=== PATIENT | male | born 1935 | race Caucasian/White ===

== ENCOUNTER → 2019-03-03 | Day surgery (SDC) | payer MEDICARE, OTHER ==
[2019-03-02 14:12] LABS: BASOPHILS # (AUTO) 0.1 (0.0-0.1); BASOPHILS % 1.1 % (0.0-1.0); EOSINOPHILS # (AUTO) 0.4 (0.0-0.4); EOSINOPHILS % 7.6 % (0.0-6.0); HEMATOCRIT 36.5 % (38.2-49.6); HEMOGLOBIN 11.8 g/dL (14.0-18.0); LYMPHOCYTES # (AUTO) 1.5 (1.0-3.2); LYMPHOCYTES % 28.2 % (18.0-39.1); MEAN CORPUSCULAR HEMOGLOBIN 30.5 pg (28-32); MEAN CORPUSCULAR HGB CONC 32.3 g/dL (31-35); MEAN CORPUSCULAR VOLUME 94.3 fL (81-99); MONOCYTES # (AUTO) 0.6 (0.2-0.8); MONOCYTES % 11.8 % (4.4-11.3); NEUTROPHILS # (AUTO) 2.7 (2.1-6.9); NEUTROPHILS % 50.9 % (38.7-80.0); PLATELET COUNT 232 x10e3/uL (140-360); RED BLOOD COUNT 3.87 x10e6/uL (4.3-5.7); RED CELL DISTRIBUTION WIDTH 12.9 % (11.7-14.4)
[~2019-03-03] MED LIST: AMLODIPINE BES2.5 MG PO; ASPIR 8181 MG PO; ASPIRIN325 MG PO; CALCIUM 600 MG1 EAC4; CHONDROITIN; COUMADIN3 MG PO; EPHEDRINE SULFATE INJ 50 MG/10 ML SYR ONE; FOLIC ACID1 MG PO; FUROSEMIDE20 MG PO; GLUCAGON FOR INJ 1 MG VIAL ONE; GLUCOSAMINE; ISOSORBIDE MONO30 MG PO; KLOR-CON M2020 MEQ PO; LORATADINE; MONTELUKAST SOD10 MG PO; PANTOPRAZOLE SO40 MG PO; PLAVIX75 MG PO; POTASSIUM GLUC500 GM PO; PRAMIPEXOLE DIHY1 MG PO; PROPOFOL IV EMULSION 10 MG/ML 50 ML VIAL ONE; SIMVASTATIN40 MG PO; Z PACERONE PO; Z VITAMIN E PO; Z.0.CYCLOBENZAPRINE1 PO; Z.0.LEVOTHYROXINE50 PO; Z.0.MAGNESIUM400 MG PO; Z.0.METOPROLOL TART2 PO; Z.0.VITAMIN C500 M1 PO; Z.0.XARELTO20 MG; [UNRECOGNIZED DRUG - OTHER] PO
--- OUTSIDE RECORDS SUMMARY | 2019-03-03 06:04 | XMS REPORT | Continuity of Care Document ---
Author Author [facility] Interface Address Unknown Phone Unavailable Problems Problem Status Onset Date Classification Date Reported Comments Source M54.17 Active 12/07/2016 [facility] 427.81 Active 05/04/2015 [facility] UNK Active 05/04/2015 [facility] FALL, NOSE BLEED Active 01/19/2014 [facility] Bradycardia Active Problem 12/20/2016 [facility] CA - Cancer of prostate Resolved Problem 12/20/2016 [facility] CTS - Carpal tunnel syndrome Active Problem 12/20/2016 [facility] Gallstones Resolved Problem 12/20/2016 [facility] Hyperlipidemia Resolved Problem 12/20/2016 [facility] Hypertension Active Problem 12/20/2016 [facility] Hypothyroid Active Problem 12/20/2016 [facility] Myocardial infarct Resolved Problem 12/20/2016 [facility] Sleep apnea Active Problem 12/20/2016 [facility] Stented coronary artery Active Problem 12/20/2016 [facility] 786.50 Active [facility] CHEST PAIN NOS Active [facility] SINOATRIAL NODE DYSFUNCT Active [facility] RADICULOPATHY, LUMBOSACRAL REGION Active [facility] Medications Medication Details Route Status Patient Instructions Ordering Provider Order Date Source Omnipaque 300 10 mL, Route: MISC, Drug Form: SOLN, ONCE, Start date: 12/17/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 WASTE: F/P - Black; E - [facility] Trash [facility] Inactive 12/17/2016 [facility] Ciprofloxacin 500 MG Oral Tablet [Cipro] 500 mg=1 tab, PO, Q12H, # 1 tab, 0 Refill(s) Active 05/10/2015 [facility] pneumococcal capsular polysaccharide type 1 vaccine / pneumococcal capsular polysaccharide type 10A vaccine / pneumococcal capsular polysaccharide type 11A vaccine / pneumococcal capsular polysaccharide type 12F vaccine / pneumococcal capsular polysacchar 0.5 mL, Route: IM, Drug Form: INJ, Daily, Start date: 05/09/15 9:00:00, Duration: 1 doses or times, Stop date: 05/09/15 9:00:00Notes: (Same as: Pneumovax 23) Refrigerate Inactive 05/09/2015 [facility] potassium chloride 20 mEq, 1 tab, Route: PO, Drug form: ERTAB, Daily, Dosing Weight 87.727, kg, Start date: 05/09/15 9:00:00, Duration: 30 day, Stop date: 06/07/15 9:00:00Notes: (Same as: K-Dur 20) "Do Not Crush" With food and full glass of water Inactive 05/09/2015 [facility] Furosemide 20 MG Oral Tablet 20 mg, 1 tab, Route: PO, Drug form: TAB, Daily, Dosing Weight 87.727, kg, Start date: 05/09/15 9:00:00, Duration: 30 day, Stop date: 06/07/15 9:00:00Notes: (Same as: Lasix) May cause GI upset. Give with food or milk. Inactive 05/09/2015 [facility] Amlodipine 2.5 mg, 1 tab, Route: PO, Drug form: TAB, Daily, Dosing Weight 87.727, kg, Start date: 05/09/15 9:00:00, Duration: 30 day, Stop date: 06/07/15 9:00:00Notes: (Same as: Norvasc) Inactive 05/09/2015 [facility] Thyroxine 50 microgram, 1 tab, Route: PO, Drug form: TAB, Q630AM, Dosing Weight 87.727, kg, Start date: 05/09/15 6:30:00, Duration: 30 day, Stop date: 06/07/15 6:30:00Notes: Take 1 hour before or 2 hours after meal; Enteral feeds may interefere with the absorption of this medication.(Same as:Levothroid, Synthroid) Inactive 05/09/2015 [facility] metoprolol tartrate 50 mg, 1 tab, Route: PO, Drug form: TAB, Q12H, Dosing Weight 88.182, kg, Priority: NOW, Start date: 05/08/15 23:57:00, Duration: 30 day, Stop date: 06/07/15 21:00:00Notes: (Same as: Lopressor) No Longer Active 05/09/2015 [facility] Ciprofloxacin 500 mg, 1 tab, Route: PO, Drug form: TAB, Q12H, Dosing Weight 87.727, kg, Start date: 05/08/15 21:00:00, Duration: 30 day, Stop date: 06/07/15 9:00:00Notes: May interfere w/enteral feedings - Take 1 hr before or 2 hrs after antacids, dairy pdt & minerals. On empty stomach. No Longer Active 05/09/2015 [facility] Simvastatin 40 mg, 1 tab, Route: PO, Drug form: TAB, Bedtime, Dosing Weight 87.727, kg, Start date: 05/08/15 21:00:00, Duration: 30 day, Stop date: 06/06/15 21:00:00Notes: (Same as: Zocor) No Longer Active 05/09/2015 [facility] nitroglycerin 0.4 mg sublingual tablet 0.4 mg, 1 tab, Route: SL, Drug form: TAB, Q5Min, PRN Chest Pain, Start date: 05/08/15 14:53:00, Duration: 30 day, Stop date: 06/07/15 14:52:00Notes: (Same as:Nitroquick, Nitrostat) "Do Not Crush" Sublingual tablet No Longer Active 05/08/2015 [facility] atropine 0.5 mg, 5 mL, Route: IVP, Drug form: INJ, PRN, PRN Bradycardia, Start date: 05/08/15 14:53:00, Duration: 30 day, Stop date: 06/07/15 14:52:00 No Longer Active 05/08/2015 [facility] Enoxaparin 40 mg, 0.4 mL, Route: SUB-Q, Drug form: INJ, [id number], Dosing Weight 87.727, kg, Start date: 05/08/15 13:00:00, Duration: 30 day, Stop date: 06/06/15 13:00:00Notes: (Same as: Lovenox) No Longer Active 05/08/2015 [facility] Vancomycin 1 gm, Route: IVPB, ONCE, Dosing Weight 87.727, kg, Time Critical Medication, Start date: 05/08/15 11:56:00, Stop date: 05/08/15 11:56:00 Inactive 05/08/2015 [facility] Acetaminophen 325 mg, 1 tab, Route: PO, Drug form: TAB, Q4H, Dosing Weight 87.727, kg, PRN Pain Score 4-6, Start date: 05/08/15 11:56:00, Duration: 30 day, Stop date: 06/07/15 11:55:00Notes: Do not exceed 4 gm/day. (Same as: Tylenol) No Longer Active 05/08/2015 [facility] Glucosamine Chondroitin MSM Complex oral tablet 1 tab, PO, Daily, 0 Refill(s) Active 05/05/2015 [facility] potassium gluconate 595 mg oral tablet 595 mg=1 tab, PO, 5X Day, # 100 tab, 0 Refill(s) Active 05/05/2015 [facility] Vitamin B12 2500 mcg sublingual tablet 2,500 microgram=1 tab, SL, Daily, # 60 tab, 0 Refill(s) Active 05/05/2015 [facility] vitamin E 400 intl units oral capsule 400 IntlUnit=1 cap, PO, BID, # 7 cap, 0 Refill(s) Active 05/05/2015 [facility] montelukast 10 mg oral tablet 10 mg=1 tab, PO, Bedtime, # 90 tab, 0 Refill(s) Active 05/05/2015 [facility] Vitamin C 500 mg oral capsule 500 mg=1 cap, PO, Daily, # 90 cap, 0 Refill(s) Active 05/05/2015 [facility] magnesium oxide 400 mg oral tablet 400 mg=1 tab, PO, TID, # 7 tab, 0 Refill(s) Active 05/05/2015 [facility] levothyroxine 50 mcg (0.05 mg) oral tablet 50 microgram=1 tab, PO, Daily, # 90 tab, 0 Refill(s) Active 05/05/2015 [facility] pramipexole 0.125 mg oral tablet 0.25 mg=2 tab, PO, Bedtime, # 30 tab, 1 Refill(s) Active 05/05/2015 [facility] Aspirin 325 MG Oral Tablet 325 mg=1 tab, PO, Daily, # 90 tab, 0 Refill(s) Active 05/05/2015 [facility] AMIODarone 200 mg oral tablet 200 mg=1 tab, PO, Daily, # 60 tab, 0 Refill(s) No Longer Active 05/05/2015 [facility] Furosemide 20 MG Oral Tablet 20 mg=1 tab, PO, Daily, # 90 tab, 0 Refill(s) Active 05/05/2015 [facility] Potassium Chloride 20 MEQ Extended Release Tablet [Klor-Con] 20 mEq=1 tab, PO, Daily, # 180 tab, 0 Refill(s) Active 05/05/2015 [facility] metoprolol 50 mg oral tablet, extended release 50 mg=1 tab, PO, BID, # 30 tab, 1 Refill(s) Active 05/05/2015 [facility] simvastatin 40 mg oral tablet 40 mg=1 tab, PO, Bedtime, # 30 tab, 5 Refill(s) Active 05/05/2015 [facility] amLODIPine 2.5 mg oral tablet 2.5 mg=1 tab, PO, Daily, # 30 tab, 0 Refill(s) Active 05/05/2015 [facility] Allergies, Adverse Reactions, Alerts Substance Category Reaction Severity Reaction type Status Date Reported Comments Source Immunizations Immunization Date Given Site Status Last Updated Comments Source pneumococcal 23-valent vaccine 05/09/2015 Right deltoid completed [facility] diphtheria/pertussis, acel/tetanus adult 01/19/2014 Right deltoid completed [facility] Results Order Name Results Value Reference Range Date Interpretation Comments Source Spine lumbar myelogram CT Spine lumbar myelogram CT CT LUMBAR MYELOGRAM Clinical Indication: M54.17 Radiculopathy, lumbosacral region; low back pain and bilateral leg weakness, worse within the left side. Comparison: None TECHNIQUE: Sequential trans-axial images were obtained with a multi-detector helical CT after the myelogram. Coronal and sagittal reconstructions were obtained. CT Radiation Dose DLP 460 mGy-cm FINDINGS: Optimal subarachnoid contrast opacification is present. ALIGNMENT AND GENERAL ASSESSMENT: There are 5 nonrib-bearing lumbar vertebral segments. There is normal alignment of the lumbar spine without fractures. There are no pars interarticularis defects noted. The anterior and posterior paraspinal soft tissues are unremarkable. The spinous processes are unremarkable. The conus medullaris is unremarkable, ending at the L1 level. DISK SPACES: T12-L1: Posterior endplate ridging and diffuse disc protrusion and moderate facet arthrosis resulting in effacement of the anterior thecal sac and mild flattening of the conus. No significant foraminal stenosis detected. L1-L2: Prominent diffuse disc protrusion possibly extrusion and moderate facet arthrosis resulting in mild spinal stenosis. Mild bilateral foraminal stenosis is present. L2-L3: Posterior endplate ridging and disc osteophyte complex and marked facet arthrosis resulting in moderate spinal stenosis with some crowding the cauda equina nerve roots. Severe bilateral foraminal stenosis probably impinging on the exiting L2 nerve roots. Please correlate with neurologic symptoms. L3-L4: Postoperative laminectomy. Prominent diffuse disc protrusion and marked facet arthrosis resulting in moderately severe spinal stenosis with crowding the cauda equina nerve roots to mild constriction. Moderate bilateral foraminal stenosis is present. Please correlate with neurologic symptoms. L4-L5: Postoperative laminectomy. Prominent diffuse disc protrusion and marked facet arthrosis resulting in severe spinal stenosis and cauda equina constriction. Moderately severe bilateral foraminal stenosis is present. Please correlate with neurologic symptoms. L5-S1: Prominent diffuse disc protrusion and marked facet arthrosis resulting in moderately severe spinal stenosis. Severe bilateral foraminal stenosis is present probably impinging on the exiting L5 nerve roots. Please correlate with neurologic symptoms. IMPRESSION: 1. Postoperative laminectomies are present at L3-L4 and L4-L5. Multilevel degenerative disc disease and marked facet arthrosis as detailed above. 2. No definite acute compression fracture detected. 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 stated hx. of low back pain and b/l leg weakness...hx. back surgery; fluoro time: 07 sec. dose: 6 mGy Omnipaque 180 Comparison: None EXAM: FLUOROSCOPY-GUIDED LUMBAR PUNCTURE FOR CT MYELOGRAM PROCEDURE: An interlaminar lumbar puncture was carried out under fluoroscopic guidance with a 22 gauge spinal Quincke needle at the level of L2-L3 under the usual sterile conditions and local anesthesia. About 10.0 mL of Iohexol-180 was instilled into the lumbar thecal sac. The patient tolerated the procedure well. FLUOROSCOPIC TIME: About 7 seconds MYELOGRAMS. Digital images of the lumbar spine show severe lumbar spondylosis and marked facet arthrosis and postoperative laminectomies at L3-L4 and L4-L5. IMPRESSION: Successful lumbar puncture for CT myelogram of the lumbar spine. SL: [id number] 12/17/2016 - - Read by: Shad Apple MD Dictated Date/time: 12/17/16 09:50 Electronically Signed by: Shad Apple MD 12/17/16 10:00 FINAL REPORT [facility] Chest 2 views DX Chest 2 views DX PROCEDURE: Chest 2 views REASON FOR EXAM: Status post PPM/ICD Implantation CLINICAL INFORMATION Arrhythmias COMPARISON: 04/2015. 01/2014. 10/2013. Implanted pacemaker. Enlarged cardiac silhouette. Bibasilar atelectasis. No pneumothorax. Right humeral replacement. Left glenohumeral joint osteoarthritic change. Thoracic spurring. SL: 13 05/09/2015 - - Read by: Bjorn Boggs MD Dictated Date/time: 05/09/15 07:39 Electronically Signed by: Bjorn Boggs MD 05/09/15 07:40 FINAL REPORT [facility] CHEM PANEL Creatinine Lvl 1.0 mg/dL 0.5 - 1.4 05/08/2015 [facility] CHEM PANEL Sodium Lvl 139 meq/L 135 - 145 05/08/2015 [facility] CHEM PANEL eGFR 71 mL/min/1.73m2 05/08/2015 1Result Comment: The eGFR is calculated using the CKD-EPI formula. In most young, healthy individuals the eGFR will be >90 mL/min/1.73m2. The eGFR declines with age. An eGFR of 60-89 may be normal in some populations, particularly the elderly, for whom the CKD-EPI formula has not been extensively validated. Use of the eGFR is not recommended in the following populations: Individuals with unstable creatinine concentrations, including patients and those with serious co-morbid conditions. Patients with extremes in muscle mass or diet. The data above are obtained from the National Kidney Disease Education Program (NKDEP) which additionally recommends that when the eGFR is used in patients with extremes of body mass index for purposes of drug dosing, the eGFR should be multiplied by the estimated BMI. [facility] CHEM PANEL AGAP 12.3 meq/L 10.0 - 20.0 05/08/2015 [facility] CHEM PANEL Chloride Lvl 104 meq/L 95 - 109 05/08/2015 [facility] CHEM PANEL Potassium Lvl 4.3 meq/L 3.5 - 5.1 05/08/2015 [facility] CHEM PANEL CO2 27 meq/L 24 - 32 05/08/2015 [facility] CHEM PANEL Calcium Lvl 8.4 mg/dL 8.5 - 10.5 05/08/2015 [facility] CHEM PANEL Glucose Lvl 95 mg/dL 70 - 99 05/08/2015 3Interpretive Data: Adult reference range values reflect the clinical guidelines of the [place] [employer]. [facility] CHEM PANEL BUN 17 mg/dL 7 - 22 05/08/2015 [facility] HEMATOLOGY Platelet 216 K/CMM 133 - 450 05/08/2015 [facility] HEMATOLOGY PTT 33.6 s 22.9 - 35.8 05/08/2015 6Interpretive Data: Heparin Therapeutic Range: 57 - 92 Seconds [facility] Chest 1view DX Chest 1view DX NAME: KANU GARCIA : 1935 SEX: M Ordering Physician: Cedric Banuelos Chest 1view : May 08, 2015 12:39:00 PM. CLINICAL INDICATION: Arrhythmias. Comparison Examination: 01/19/2014. FINDINGS: Left transvenous pacer in place with 1-lead in expected region of the right atrium and 1-lead in the expected region of the right ventricle. Enlarged cardiac silhouette and mediastinal structures stable including aortic calcification and probable hiatal hernia. No focal infiltrate identified within the lungs, no edema and no pneumothorax. The patient is status post right shoulder replacement. Degenerative changes seen about the thoracic spine. SL: 14 05/08/2015 - - Read by: Bong Torres MD Dictated Date/time: 05/08/15 12:46 Electronically Signed by: Bong Torres MD 05/08/15 12:47 FINAL REPORT [facility] CHEM PANEL eGFR 64 mL/min/1.73m2 05/05/2015 2Result Comment: The eGFR is calculated using the CKD-EPI formula. In most young, healthy individuals the eGFR will be >90 mL/min/1.73m2. The eGFR declines with age. An eGFR of 60-89 may be normal in some populations, particularly the elderly, for whom the CKD-EPI formula has not been extensively validated. Use of the eGFR is not recommended in the following populations: Individuals with unstable creatinine concentrations, including patients and those with serious co-morbid conditions. Patients with extremes in muscle mass or diet. The data above are obtained from the National Kidney Disease Education Program (NKDEP) which additionally recommends that when the eGFR is used in patients with extremes of body mass index for purposes of drug dosing, the eGFR should be multiplied by the estimated BMI. [facility] CHEM PANEL Chloride Lvl 102 meq/L 95 - 109 05/05/2015 [facility] CHEM PANEL Calcium Lvl 8.7 mg/dL 8.5 - 10.5 05/05/2015 [facility] CHEM PANEL Potassium Lvl 4.7 meq/L 3.5 - 5.1 05/05/2015 [facility] CHEM PANEL Sodium Lvl 139 meq/L 135 - 145 05/05/2015 [facility] CHEM PANEL ALT 55 unit/L 0 - 65 05/05/2015 [facility] CHEM PANEL Bili Total 0.4 mg/dL 0.2 - 1.3 05/05/2015 [facility] CHEM PANEL Total Protein 7.6 g/dL 6.4 - 8.4 05/05/2015 [facility] CHEM PANEL AST 48 unit/L 0 - 37 05/05/2015 [facility] CHEM PANEL Alk Phos 120 unit/L 39 - 136 05/05/2015 [facility] CHEM PANEL Albumin Lvl 3.9 g/dL 3.5 - 5.0 05/05/2015 [facility] CHEM PANEL Glucose Lvl 88 mg/dL 70 - 99 05/05/2015 4Interpretive Data: Adult reference range values reflect the clinical guidelines of the [place] [employer]. [facility] CHEM PANEL CO2 29 meq/L 24 - 32 05/05/2015 [facility] CHEM PANEL BUN 23 mg/dL 7 - 22 05/05/2015 [facility] CHEM PANEL Creatinine Lvl 1.1 mg/dL 0.5 - 1.4 05/05/2015 [facility] CHEM PANEL A/G Ratio 1.1 0.7 - 1.6 05/05/2015 [facility] CHEM PANEL B/C Ratio 21 6 - 25 05/05/2015 [facility] CHEM PANEL Globulin 3.7 g/dL 2.0 - 4.0 05/05/2015 [facility] CHEM PANEL AGAP 12.7 meq/L 10.0 - 20.0 05/05/2015 [facility] MCV 90.0 fL 80.0 - 94.0 05/05/2015 [facility] [facility] Hct 39.8 % 42.0 - 54.0 05/05/2015 [facility] MCH 30.3 pg 27.0 - 31.0 05/05/2015 [facility] Hgb 13.4 g/dL 14.0 - 18.0 05/05/2015 [facility] [place] WBC 6.5 K/CMM 3.7 - 10.4 05/05/2015 [facility] [place] RBC 4.42 M/CMM 4.70 - 6.10 05/05/2015 [facility] MPV 9.8 fL 7.4 - 10.4 05/05/2015 [facility] MCHC 33.6 g/dL 32.0 - 36.0 05/05/2015 [facility] [place] Platelet 233 K/CMM 133 - 450 05/05/2015 [facility] [facility] RDW 14.3 % 11.5 - 14.5 05/05/2015 [facility] Segs 55.6 % 45.0 - 75.0 05/05/2015 [facility] [place] Lymphocytes 23.9 % 20.0 - 40.0 05/05/2015 [facility] [place] Eosinophils # 0.5 K/CMM 0.0 - 0.5 05/05/2015 [facility] Basophils # 0.1 K/CMM 0.0 - 0.2 05/05/2015 [facility] [place] Monocytes # 0.8 K/CMM 0.0 - 0.8 05/05/2015 [facility] [place] Lymphocytes # 1.6 K/CMM 1.0 - 5.5 05/05/2015 [facility] Monocytes 11.7 % 2.0 - 12.0 05/05/2015 [facility] [place] Basophils 1.1 % 0.0 - 1.0 05/05/2015 [facility] Segs-Bands # 3.6 K/CMM 1.5 - 8.1 05/05/2015 [facility] [place] Eosinophils 7.7 % 0.0 - 4.0 05/05/2015 [facility] INR 1.00 0.85 - 1.17 05/05/2015 5Interpretive Data: RECOMMENDED RANGES FOR PROTIME INR: 2.0-3.0 for most medical and surgical thromboembolic states. 2.5-3.5 for artificial heart valves and recurrent embolism. INR SHOULD BE USED ONLY FOR PATIENTS ON STABLE ANTICOAGULANT THERAPY. [facility] HEMATOLOGY PT 13.2 s 12.0 - 14.7 05/05/2015 [facility] Facial bone wo contrast CT Facial bone wo contrast CT CT face without contrast. CLINICAL HISTORY: Head and face trauma TECHNIQUE : Multiple contiguous transaxial images were obtained through the face. Reformations are available in sagittal and coronal projections. FINDINGS: There is no evidence for any facial fractures. The nasal bones are intact. No air-fluid level is identified in either maxillary sinus. There is near-complete opacification of the left maxillary sinus and thickening of the periosteum. Findings likely related to chronic sinusitis. There is mild degree of nasal soft tissue swelling. IMPRESSION: No fractures or other acute abnormality is noted. Changes of chronic sinusitis are noted in the left maxillary sinus. SL:01/19/2014 - - Read by: Dustin Espino Dictated Date/time: 01/19/14 12:06 Electronically Signed by: Dustin Espino MD 01/19/14 12:10 FINAL REPORT [facility] Brain wo contrast CT Brain wo contrast CT CT head no contrast. COMPARISON: No priors TECHNIQUE: Contiguous transaxial images of the brain were performed without administration of IV contrast. FINDINGS: There is no evidence for parenchymal bleed, extra-axial collections, intracranial masses or midline shift. No displaced fractures of the calvarium or other significant bony abnormality is noted. There is mild cerebral atrophy. No acute infarct is evident. There is near- complete opacification of the left maxillary sinus. There is thickening of the periosteum of the left maxillary sinus. The other visualized paranasal sinuses and the mastoids are clear. IMPRESSION: Mild cerebral atrophy. No acute brain abnormality is noted. Changes of chronic left maxillary sinusitis. SL:01/19/2014 - - Read by: Dustin Espino Dictated Date/time: 01/19/14 12:00 Electronically Signed by: Dustin Espino MD 01/19/14 12:05 FINAL REPORT [facility] Chest 1view Chest 1view Portable chest: The aorta is tortuous and calcified. The cardiac silhouette and pulmonary vasculature are within normal limits. The lungs and pleural spaces are clear. Right shoulder hemiarthroplasty is noted. There is no significant change compared to 11/05/2013. IMPRESSION: No acute radiographic abnormality in the chest. SL:13 01/19/2014 - - Read by: Galo Goldberg Dictated Date/time: 01/19/14 11:49 Electronically Signed by: Galo Goldberg MD 01/19/14 11:50 FINAL REPORT [facility] Pelvis AP Pelvis AP Pelvis one view: There is no evidence of fractures or destructive lesions.. Left total hip arthroplasty is noted in satisfactory position. There are moderate to severe degenerative changes in the right hip, worsening compared to right hip radiographs on 01/19/2007. Surgical clips in the soft tissues are noted. IMPRESSION: No acute radiographic abnormality of the pelvis. SL:13 01/19/2014 - - Read by: Galo Goldberg Dictated Date/time: 01/19/14 11:50 Electronically Signed by: Galo Goldberg MD 01/19/14 11:52 FINAL REPORT [facility] Chest 2 views Chest 2 views PA and LATERAL CHEST (2 views) HISTORY: 786.50 Unspecified Chest Pain There are no prior studies available for comparison. FINDINGS: The lungs are clear. There is a shallow degree of inspiration. There are no pleural effusions. The heart and pulmonary vasculature are within normal limits. There is soft tissue prominence along the region of the descending thoracic aorta. This could represent tortuosity or an aneurysm. Comparison with prior studies, if available, may be helpful. If these are not available, a chest CT may be indicated. There are moderate atherosclerotic calcifications involving the thoracic aorta. There is a right shoulder prosthesis. There are degenerative change involving left shoulder and spine. Otherwise, the regional skeleton is unremarkable. CONCLUSION: 1. No active disease. 2. Soft tissue prominence in the region of the descending thoracic aorta. This could represent tortuosity or aneurysmal dilatation of the descending thoracic aorta. Is a see discussion above. 3. Right shoulder prosthesis. 4. Degenerative change involving the spine and left shoulder. Coding: Chest 2 views CPT Code: 93733 SL: 12 Jose De Jesus Hair M.D. 11/05/2013 - - Read by: Jose De Jesus Hair Dictated Date/time: 11/05/13 15:11 Electronically Signed by: Jose De Jesus Hair MD 11/05/13 15:14 FINAL REPORT [facility] Vital Signs Vital Sign Value Date Comments Source Systolic (mm Hg) 130 05/09/2015 [facility] Diastolic (mm Hg) 83 05/09/2015 [facility] Heart Rate 60 05/09/2015 [facility] Respitory Rate 18 05/09/2015 [facility] Temperature Oral (F) 97.4 F 05/09/2015 [facility] Heart Rate 61 05/09/2015 [facility] Temperature Oral (F) 98.0 F 05/09/2015 [facility] Respitory Rate 18 05/09/2015 [facility] Systolic (mm Hg) 135 05/09/2015 [facility] Diastolic (mm Hg) 84 05/09/2015 [facility] Temperature Oral (F) 98 F 05/09/2015 [facility] Respitory Rate 18 05/09/2015 [facility] Heart Rate 60 05/09/2015 [facility] Systolic (mm Hg) 128 05/09/2015 [facility] Diastolic (mm Hg) 78 05/09/2015 [facility] BMI Calculated 32.35 05/08/2015 [facility] Height 165.1 cm 05/08/2015 [facility] Weight 88.182 05/08/2015 [facility] BMI Calculated 32.18 05/05/2015 [facility] Weight 87.727 05/05/2015 [facility] Height 165.1 cm 05/05/2015 [facility] Encounters Location Location Details Encounter Type Encounter Number Reason For Visit Attending Provider ADM Date DC Date Status Source [facility] Outpatient [id number] CEDRIC BANUELOS 11/05/2013 Active [facility] Bedded Outpatient [id number] Cedric Banuelos 05/08/2015 05/09/2015 [facility] Outpatient [id number] Bay Olivarez 12/17/2016 12/18/2016 [facility] Procedures Procedure Code Date Perfomer Comments Source Insertion of coronary artery stent [id number] 11/10/2011 [facility] Prostatectomy [id number] 11/10/2001 [facility] Open reduction and fixation [id number] 11/10/1995 [facility] Hip replacement [id number] [facility] Laparoscopic cholecystostomy [id number] [facility] Operation on lumbar spine<sup>1</sup> [id number] "clean out around spinal cord" [facility] Shoulder replacement [id number] [facility]
--- OUTSIDE RECORDS SUMMARY | 2019-03-03 06:04 | XMS REPORT ---
Author Author [facility] Address Unknown Phone Unavailable Care Team Providers Care Forensic Scientist Name Role Phone Unavailable Unavailable Payers Payer Name Policy Type Policy Number Effective Date Expiration Date Problems This patient has no known problems. Allergies, Adverse Reactions, Alerts Allergy Name Allergy Type Status Severity Reaction(s) Onset Date Inactive Date Treating Clinician Comments adhesive DA Active U 2017-09-24 00:00:00 Medications This patient has no known medications.
--- OUTSIDE RECORDS SUMMARY | 2019-03-03 06:04 | XMS REPORT | Summary of Care ---
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) Gallstones(Confirmed Resolved ) Hyperlipidemia(Confi Resolved rmed) Hypertension(Confirm Active ed) Hypothyroid(Confirme Active d) Myocardial Resolved infarct(Confirmed) Sleep Active apnea(Confirmed) Stented coronary Active artery(Confirmed) Allergies, Adverse Reactions, Alerts Substance Reaction Severity Status NKDA Active Medications Omnipaque 300 10 mL, Route: MISC, Drug Form: SOLN, ONCE, Start date: 12/17/16 8:05:00 BIOSTATISTICS DIRECTOR, Sto p date: 12/17/16 8:05:00 BIOSTATISTICS DIRECTOR Notes: (Same as:Omnipaque 300).WASTE: F/P - Black; E - Municipal Trash Bin Start Date: 12/17/16 Stop Date: 12/17/16 Status: Completed Results No data available for this section Immunizations Given and Recorded Vaccine Date Status Refusal Reason diphtheria/pertussis, acel/tetanus adult 01/19/14 Given pneumococcal 23-valent vaccine 05/09/15 Given Procedures Procedure Date Related Diagnosis Body Site Insertion of coronary artery stent 2012 Prostatectomy 2002 Open reduction and fixation 1995 Hip replacement Laparoscopic cholecystostomy Operation on lumbar spine1 Shoulder replacement 1"clean out around spinal cord" Social History Social History Type Response Alcohol Past Smoking Status Former smoker; Exposure to Tobacco Smoke None; Cigarette Smoking Last 365 Days No; Reg Smoking Cessation Counseling No Assessment and Plan No data available for this section
--- OUTSIDE RECORDS SUMMARY | 2019-03-03 06:04 | XMS REPORT | Summary of Care ---
Author Organization Unknown Address Unknown Phone Unavailable Encounter HQ Michael(NAT) [id number] Date(s): 05/08/15 - 05/09/15 [facility] [address] [place] [address]- Discharge Disposition: Home Physician Attending: Cedric Banuelos MD Physician_Referring: Cedric Banuelos MD Vital Signs 1 2 3 Most recent to oldest [Reference Range]: 165.1 cm (05/08/15 1:52 PM) 165.1 cm (05/05/15 2:56 PM) Height 97.4 DegF (05/09/15 12:00 PM) 98.0 DegF (05/09/15 8:00 AM) 98 DegF (05/09/15 4:00 AM) Temperature Oral [96.4-99.1 DegF] 130/83 mmHg (05/09/15 12:00 PM) 135/84 mmHg (05/09/15 8:00 AM) 128/78 mmHg (05/09/15 4:00 AM) Blood Pressure [90-140/60-90 mmHg] 18 BRMIN (05/09/15 12:00 PM) 18 BRMIN (05/09/15 8:00 AM) 18 BRMIN (05/09/15 4:00 AM) Respiratory Rate [14-20 BRMIN] 60 bpm (05/09/15 12:00 PM) 61 bpm (05/09/15 8:00 AM) 60 bpm (05/09/15 4:00 AM) Peripheral Pulse Rate [60-100 bpm] 88.182 kg (05/08/15 1:52 PM) 87.727 kg (05/05/15 2:56 PM) Weight 32.35 m2 (05/08/15 1:52 PM) 32.18 m2 (05/05/15 2:56 PM) Body Mass Index Problem List Condition Effective Dates Status Health Status Informant Bradycardia(Confirme Active d) CA - Cancer of Resolved prostate(Confirmed) CTS - Carpal tunnel Active syndrome(Confirmed) Gallstones(Confirmed Resolved ) Hyperlipidemia(Confi Resolved rmed) Hypertension(Confirm Active ed) Hypothyroid(Confirme Active d) Myocardial Resolved infarct(Confirmed) Sleep Active apnea(Confirmed) Stented coronary Active artery(Confirmed) Allergies, Adverse Reactions, Alerts Substance Reaction Severity Status NKDA Active Medications acetaminophen 325 mg, 1 tab, Route: PO, Drug form: TAB, Q4H, Dosing Weight 87.727, kg, PRN Christian n Score 4-6, Start date: 05/08/15 11:56:00, Duration: 30 day, Stop date: 5 11:55:00 Notes: Do not exceed 4 gm/day. (Same as: Tylenol) Start Date: 05/08/15 Stop Date: 05/09/15 Status: Discontinued AMIODarone 200 mg oral tablet 200 mg=1 tab, PO, Daily, # 60 tab, 0 Refill(s) Start Date: 05/05/15 Stop Date: 05/08/15 Status: Discontinued amLODIPine 2.5 mg, 1 tab, Route: PO, Drug form: TAB, Daily, Dosing Weight 87.727, kg, Start date: 05/09/15 9:00:00, Duration: 30 day, Stop date: 06/07/15 9:00:00 Notes: (Same as: Norvasc) Start Date: 05/09/15 Stop Date: 05/09/15 Status: Discontinued amLODIPine 2.5 mg oral tablet 2.5 mg=1 tab, PO, Daily, # 30 tab, 0 Refill(s) Start Date: 05/05/15 Status: Ordered aspirin buffered 325 mg oral tablet 325 mg=1 tab, PO, Daily, # 90 tab, 0 Refill(s) Start Date: 05/05/15 Stop Date: 08/03/15 Status: Ordered atropine 0.5 mg, 5 mL, Route: IVP, Drug form: INJ, PRN, PRN Bradycardia, Start date: 04/11 07/25 14:53:00, Duration: 30 day, Stop date: 06/07/15 14:52:00 Start Date: 05/08/15 Stop Date: 05/09/15 Status: Discontinued Cipro 500 mg oral tablet 500 mg=1 tab, PO, Q12H, # 1 tab, 0 Refill(s) Start Date: 05/10/15 Stop Date: 05/29/15 Status: Ordered ciprofloxacin 500 mg, 1 tab, Route: PO, Drug form: TAB, Q12H, Dosing Weight 87.727, kg, Start date: 05/08/15 21:00:00, Duration: 30 day, Stop date: 06/07/15 9:00:00 Notes: May interfere w/enteral feedings - Take 1 hr before or 2 hrs after anta cids, dairy pdt & minerals. On empty stomach. Start Date: 05/08/15 Stop Date: 05/09/15 Status: Discontinued enoxaparin 40 mg, 0.4 mL, Route: SUB-Q, Drug form: INJ, [id number], Dosing Weight 87.727, kg, Start date: 05/08/15 13:00:00, Duration: 30 day, Stop date: 06/06/15 13:00:00 Notes: (Same as: Lovenox) Start Date: 05/08/15 Stop Date: 05/09/15 Status: Discontinued furosemide 20 mg oral tablet 20 mg=1 tab, PO, Daily, # 90 tab, 0 Refill(s) Start Date: 05/05/15 Status: Ordered furosemide 20 mg oral tablet 20 mg, 1 tab, Route: PO, Drug form: TAB, Daily, Dosing Weight 87.727, kg, Start date: 05/09/15 9:00:00, Duration: 30 day, Stop date: 06/07/15 9:00:00 Notes: (Same as: Lasix) May cause GI upset. Give with food or milk. Start Date: 05/09/15 Stop Date: 05/09/15 Status: Discontinued Glucosamine Chondroitin MSM Complex oral tablet 1 tab, PO, Daily, 0 Refill(s) Start Date: 05/05/15 Status: Ordered Klor-Con M20 oral tablet, extended release 20 mEq=1 tab, PO, Daily, # 180 tab, 0 Refill(s) Start Date: 05/05/15 Status: Ordered levothyroxine 50 microgram, 1 tab, Route: PO, Drug form: TAB, [id number], Dosing Weight 87.727, kg , Start date: 05/09/15 6:30:00, Duration: 30 day, Stop date: 06/07/15 6:30:00 Notes: Take 1 hour before or 2 hours after meal; Enteral feeds may interefere wi th the absorption of this medication.(Same as:Levothroid, Synthroid) Start Date: 05/09/15 Stop Date: 05/09/15 Status: Discontinued levothyroxine 50 mcg (0.05 mg) oral tablet 50 microgram=1 tab, PO, Daily, # 90 tab, 0 Refill(s) Start Date: 05/05/15 Status: Ordered magnesium oxide 400 mg oral tablet 400 mg=1 tab, PO, TID, # 7 tab, 0 Refill(s) Start Date: 05/05/15 Stop Date: 05/12/15 Status: Ordered metoprolol 50 mg oral tablet, extended release 50 mg=1 tab, PO, BID, # 30 tab, 1 Refill(s) Start Date: 05/05/15 Status: Ordered metoprolol tartrate 50 mg, 1 tab, Route: PO, Drug form: TAB, Q12H, Dosing Weight 88.182, kg, Priorit y: NOW, Start date: 05/08/15 23:57:00, Duration: 30 day, Stop date: 06/07/15 21: 00:00 Notes: (Same as: Lopressor) Start Date: 05/08/15 Stop Date: 05/09/15 Status: Discontinued montelukast 10 mg oral tablet 10 mg=1 tab, PO, Bedtime, # 90 tab, 0 Refill(s) Start Date: 05/05/15 Status: Ordered nitroglycerin 0.4 mg sublingual tablet 0.4 mg, 1 tab, Route: SL, Drug form: TAB, Q5Min, PRN Chest Pain, Start date: 14:53:00, Duration: 30 day, Stop date: 06/07/15 14:52:00 Notes: (Same as:Nitroquick, Nitrostat)"Do Not Crush" Sublingual tablet Start Date: 05/08/15 Stop Date: 05/09/15 Status: Discontinued pneumococcal 23-valent vaccine 0.5 mL, Route: IM, Drug Form: INJ, Daily, Start date: 05/09/15 9:00:00, Duration : 1 doses or times, Stop date: 05/09/15 9:00:00 Notes: (Same as: Pneumovax 23) Refrigerate Start Date: 05/09/15 Stop Date: 05/09/15 Status: Completed potassium chloride 20 mEq, 1 tab, Route: PO, Drug form: ERTAB, Daily, Dosing Weight 87.727, kg, Sta rt date: 05/09/15 9:00:00, Duration: 30 day, Stop date: 06/07/15 9:00:00 Notes: (Same as: K-Dur 20)"Do Not Crush" With food and full glass of water Start Date: 05/09/15 Stop Date: 05/09/15 Status: Discontinued potassium gluconate 595 mg oral tablet 595 mg=1 tab, PO, 5X Day, # 100 tab, 0 Refill(s) Start Date: 05/05/15 Status: Ordered pramipexole 0.125 mg oral tablet 0.25 mg=2 tab, PO, Bedtime, # 30 tab, 1 Refill(s) Start Date: 05/05/15 Status: Ordered simvastatin 40 mg, 1 tab, Route: PO, Drug form: TAB, Bedtime, Dosing Weight 87.727, kg, Star t date: 05/08/15 21:00:00, Duration: 30 day, Stop date: 06/06/15 21:00:00 Notes: (Same as: Zocor) Start Date: 05/08/15 Stop Date: 05/09/15 Status: Discontinued simvastatin 40 mg oral tablet 40 mg=1 tab, PO, Bedtime, # 30 tab, 5 Refill(s) Start Date: 05/05/15 Status: Ordered vancomycin 1 gm, Route: IVPB, ONCE, Dosing Weight 87.727, kg, Time Critical Medication, Sta rt date: 05/08/15 11:56:00, Stop date: 05/08/15 11:56:00 Start Date: 05/08/15 Stop Date: 05/08/15 Status: Completed Vitamin B12 2500 mcg sublingual tablet 2,500 microgram=1 tab, SL, Daily, # 60 tab, 0 Refill(s) Start Date: 05/05/15 Status: Ordered Vitamin C 500 mg oral capsule 500 mg=1 cap, PO, Daily, # 90 cap, 0 Refill(s) Start Date: 05/05/15 Status: Ordered vitamin E 400 intl units oral capsule 400 IntlUnit=1 cap, PO, BID, # 7 cap, 0 Refill(s) Start Date: 05/05/15 Stop Date: 05/12/15 Status: Ordered Results ELECTROLYTES Most recent to 1 2 oldest [Reference Range]: Sodium Lvl [135-145 139 mEq/L 139 mEq/L mEq/L] (05/08/15 4:59 PM) (05/05/15 3:25 PM) Potassium Lvl 4.3 mEq/L 4.7 mEq/L [3.5-5.1 mEq/L] (05/08/15 4:59 PM) (05/05/15 3:25 PM) Chloride Lvl [95-109 104 mEq/L 102 mEq/L mEq/L] (05/08/15 4:59 PM) (05/05/15 3:25 PM) CO2 [24-32 mEq/L] 27 mEq/L 29 mEq/L (05/08/15 4:59 PM) (05/05/15 3:25 PM) AGAP [10.0-20.0 12.3 mEq/L 12.7 mEq/L mEq/L] (05/08/15 4:59 PM) (05/05/15 3:25 PM) CHEM PANEL Most recent to 1 2 oldest [Reference Range]: Creatinine Lvl 1.0 mg/dL 1.1 mg/dL [0.5-1.4 mg/dL] (05/08/15 4:59 PM) (05/05/15 3:25 PM) eGFR 71 mL/min/1.73m2 1 64 mL/min/1.73m2 2 *NA* *NA* (05/08/15 4:59 PM) (05/05/15 3:25 PM) BUN [7-22 mg/dL] 17 mg/dL 23 mg/dL (05/08/15 4:59 PM) *HI* (05/05/15 3:25 PM) B/C Ratio [-25] 21 (05/05/15 3:25 PM) Glucose Lvl [70-99 95 mg/dL 3 88 mg/dL 4 mg/dL] (05/08/15 4:59 PM) (05/05/15 3:25 PM) Total Protein 7.6 g/dL [6.4-8.4 g/dL] (05/05/15 3:25 PM) Albumin Lvl [3.5-5.0 3.9 g/dL g/dL] (05/05/15 3:25 PM) Globulin [2.0-4.0 3.7 g/dL g/dL] (05/05/15 3:25 PM) A/G Ratio [0.7-1.6] 1.1 (05/05/15 3:25 PM) Calcium Lvl 8.4 mg/dL 8.7 mg/dL [8.5-10.5 mg/dL] *LOW* (05/05/15 3:25 PM) (05/08/15 4:59 PM) ALT [0-65 unit/L] 55 unit/L (05/05/15 3:25 PM) AST [0-37 unit/L] 48 unit/L *HI* (05/05/15 3:25 PM) Alk Phos [39-136 120 unit/L unit/L] (05/05/15 3:25 PM) Bili Total [0.2-1.3 0.4 mg/dL mg/dL] (05/05/15 3:25 PM) 1Result Comment: The eGFR is calculated using [...] from the National Kidney Disease Education Program ( NKDEP) which additionally recommends that when the eGFR is used in patients with extremes of body mass index for purposes of drug dosing, the eGFR should be mul tiplied by the estimated BMI. 2Result Comment: The eGFR is calculated using [...] from the National Kidney Disease Education Program ( NKDEP) which additionally recommends that when the eGFR is used in patients with extremes of body mass index for purposes of drug dosing, the eGFR should be mul tiplied by the estimated BMI. 3Interpretive Data: Adult reference range values reflect the clinical guidelines of the [place] [employer]. 4Interpretive Data: Adult reference range values reflect the clinical guidelines of the [place] [employer]. HEMATOLOGY Most recent to 1 2 oldest [Reference Range]: WBC [3.7-10.4 K/CMM] 6.5 K/CMM (05/05/15 3:25 PM) RBC [4.70-6.10 4.42 M/CMM M/CMM] *LOW* (05/05/15 3:25 PM) Hgb [14.0-18.0 g/dL] 13.4 g/dL *LOW* (05/05/15 3:25 PM) Hct [42.0-54.0 %] 39.8 % *LOW* (05/05/15 3:25 PM) MCV [80.0-94.0 fL] 90.0 fL (05/05/15 3:25 PM) MCH [27.0-31.0 pg] 30.3 pg (05/05/15 3:25 PM) MCHC [32.0-36.0 33.6 g/dL g/dL] (05/05/15 3:25 PM) RDW [11.5-14.5 %] 14.3 % (05/05/15 3:25 PM) Platelet [133-450 216 K/CMM 233 K/CMM K/CMM] (05/08/15 4:59 PM) (05/05/15 3:25 PM) MPV [7.4-10.4 fL] 9.8 fL (05/05/15 3:25 PM) Segs [45.0-75.0 %] 55.6 % (05/05/15 3:25 PM) Lymphocytes 23.9 % [20.0-40.0 %] (05/05/15 3:25 PM) Monocytes [2.0-12.0 11.7 % %] (05/05/15 3:25 PM) Eosinophils [0.0-4.0 7.7 % %] *HI* (05/05/15 3:25 PM) Basophils [0.0-1.0 1.1 % %] *HI* (05/05/15 3:25 PM) Segs-Bands # 3.6 K/CMM [1.5-8.1 K/CMM] (05/05/15 3:25 PM) Lymphocytes # 1.6 K/CMM [1.0-5.5 K/CMM] (05/05/15 3:25 PM) Monocytes # [0.0-0.8 0.8 K/CMM K/CMM] (05/05/15 3:25 PM) Eosinophils # 0.5 K/CMM [0.0-0.5 K/CMM] (05/05/15 3:25 PM) Basophils # [0.0-0.2 0.1 K/CMM K/CMM] (05/05/15 3:25 PM) PT [12.0-14.7 13.2 seconds seconds] (05/05/15 3:25 PM) INR [0.85-1.17] 1.00 5 (05/05/15 3:25 PM) PTT [22.9-35.8 33.6 seconds 6 seconds] (05/08/15 4:59 PM) 5Interpretive Data: RECOMMENDED RANGES FOR PROTIME INR: 2.0-3.0 for most medical and surgical thromboembolic states. 2.5-3.5 for artificial heart valves and recurrent embolism. INR SHOULD BE USED ONLY FOR PATIENTS ON STABLE ANTICOAGULANT THERAPY. 6Interpretive Data: Heparin Therapeutic Range: 57 - 92 Seconds Immunizations Vaccine Date Refusal Reason diphtheria/pertussis, acel/tetanus adult 01/19/14 pneumococcal 23-valent vaccine 6/30/15 Procedures Procedure Date Related Diagnosis Body Site Insertion of coronary artery stent 2012 Prostatectomy 2002 Open reduction and fixation 1996 Hip replacement Laparoscopic cholecystostomy Operation on lumbar spine1 Shoulder replacement 1"clean out around spinal cord" Social History Social History Type Response Alcohol Past Smoking Status Former smoker; Exposure to Tobacco Smoke None; Cigarette Smoking Last 365 Days No; Reg Smoking Cessation Counseling No Assessment and Plan No data available for this section
[2019-03-03 10:30] VITALS: BP 100/71
--- NOTE | 2019-03-03 14:06 | Operative Report ---
DATE OF PROCEDURE: 03/03/2019 SURGEON: Kevin Mejia MD PROCEDURE: Esophagogastroduodenoscopy with biopsies and a colonoscopy with polypectomy. INDICATIONS FOR EGD: Dyspepsia. INDICATIONS FOR COLONOSCOPY: Surveillance colonoscopy; personal history of colon polyps, father with colon cancer. MEDICATIONS: The patient was done under MAC, please see anesthesiologist's note. PROCEDURE IN DETAIL: With the patient in left lateral decubitus position, flexible fiberoptic Olympus gastroscope was introduced into the esophagus under direct visualization without any difficulty. There was some patchy erythema noted in distal esophagus. The scope was then advanced with ease into the stomach traversing a small sliding hiatal hernia. Mucosa overlying the antrum and the body revealed some patchy intense erythema and moderate edema and biopsies were obtained and sent to stain for H pylori. The pylorus was of normal contour and shape, it was intubated with ease and the scope was advanced all the way to the second portion of the duodenum. The scope was then withdrawn slowly and mucosa overlying the proximal and second portion and the duodenal bulb appeared to be within normal limits. The scope was then withdrawn back into the stomach and retroflexed and mucosa overlying the fundus and the cardia appeared to be within normal limits. The scope was then straightened out, it was subsequently withdrawn. The patient tolerated procedure well. IMPRESSION: 1. Mild distal esophagitis. 2. Small sliding hiatal hernia. 3. Gastritis, biopsied, biopsies sent to stain for H pylori. PLAN: Follow up histology. Initiate Protonix 40 mg one p.o. q.a.m. a.c. PROCEDURE IN DETAIL: The patient was then turned around. After adequate lubrication of the anal canal, flexible fiberoptic Olympus colonoscope was inserted into the rectum with ease and advanced all the way to the cecum. It was then withdrawn slowly and mucosa overlying the cecum, ascending, transverse and descending grossly appeared to be within normal limits other than for some scattered diverticular disease. One polyp was snared and one polyp was hot biopsied from the sigmoid. One polyp was hot biopsied from the rectum. The scope was then retroflexed into the distal rectum and moderate-sized internal hemorrhoids were noted, none of which was actively bleeding. The scope was then straightened out, it was subsequently withdrawn. The patient tolerated procedure well. IMPRESSION: 1. Sigmoid colon polyps x2, one snared and one hot biopsied. 2. Diverticulosis. 3. Rectal polyp x1, hot biopsied. 4. Internal hemorrhoids, none actively bleeding. PLAN: Follow up histology. Initiate high-fiber, low-fat diet. Initiate high-fiber supplement. There would be no need for any additional colonoscopy in this 83-year-old patient. Kevin Mejia MD [facility] [place]/[facility] /[id number] cc: Mark Bob DO
== END | disposition home or self-care (01) ==
LOC: OR 05:59
PROVIDERS: ATTEND Internal Medicine Gastroenterology
DX: K20.8 Other esophagitis (principal); K63.5 Polyp of colon; K62.1 Rectal polyp; K29.70 Gastritis, unspecified, without bleeding; K21.9 Gastro-esophageal reflux disease without esophagitis; K44.9 Diaphragmatic hernia without obstruction or gangrene; K57.30 Diverticulosis of large intestine without perforation or abscess without bleeding; K64.8 Other hemorrhoids; G47.33 Obstructive sleep apnea (adult) (pediatric); I25.10 Atherosclerotic heart disease of native coronary artery without angina pectoris; I10 Essential (primary) hypertension; I48.91 Unspecified atrial fibrillation; I44.0 Atrioventricular block, first degree; I25.2 Old myocardial infarction; Z01.810 Encounter for preprocedural cardiovascular examination; Z01.812 Encounter for preprocedural laboratory examination; Z79.02 Long term (current) use of antithrombotics/antiplatelets; Z79.82 Long term (current) use of aspirin; Z68.28 Body mass index [BMI] 28.0-28.9, adult; Z85.46 Personal history of malignant neoplasm of prostate; Z95.0 Presence of cardiac pacemaker; Z87.891 Personal history of nicotine dependence; Z80.0 Family history of malignant neoplasm of digestive organs
CPT/HCPCS: 36415; 43239; 45384; 45385; 85025; 88305; 88312; 93005; J1610; J2704; 45378